=== PATIENT | female | born 1945 | race Caucasian/White ===

== ENCOUNTER 2019-02-24 08:45 | Inpatient (IN) | payer OTHER ==
[~2019-02-24] VITALS: Ht 160 cm; Wt 59.9 kg
[2019-02-24] MEDS ORDERED: ARICEPT5 MG PO (09:12)
[2019-02-24] MEDS ORDERED: NAMENDA XR21 MG PO (09:12)
[2019-02-24] MEDS ORDERED: TENORMIN50 M1 PO (09:12)
[2019-02-24] MEDS ORDERED: ZESTRIL5 MG PO (09:13)
[2019-02-24] MEDS ORDERED: METFORMIN HCL500 MG PO (09:13)
[2019-02-24] MEDS ORDERED: ZOCOR40 MG PO (09:13)
[2019-03-06] MEDS ORDERED: INTEGRA PLUS C1 EACH PO (07:51)
[2019-03-06] MEDS ORDERED: OXYC1TAB9 PO (07:51)
[2019-03-06] MEDS ORDERED: XARELTO10 MG PO (07:51)
== END 2019-03-07 07:54 | DRG 470 ==
LOC: SURH 03-03 05:45 → O/R 03-03 05:45 → SURH 03-03 07:00
PROVIDERS: ADMIT Orthopaedic Surgery Sports Medicine
PROC: 0SRC0J9 Replacement of Right Knee Joint with Synthetic Substitute, Cemented, Open Approach (ICD-10-PCS; principal; 2019-03-03 07:00)
DX: M17.11 Unilateral primary osteoarthritis, right knee (principal); E11.9 Type 2 diabetes mellitus without complications; I10 Essential (primary) hypertension